=== PATIENT | female | born 1985 | race Caucasian/White ===

== ENCOUNTER → 2019-03-19 | Outpatient (CLI) | payer SELFPAY ==
--- NOTE | 2019-03-19 17:26 | PCVCIMAG ---
APPROVED REPORT Study performed: 03/19/2019 16:39:15 EXAM: Comprehensive 2D, Doppler, and color-flow Echocardiogram Patient Location: Echo lab Status: routine BSA: 2.39 HR: 103 bpmBP: 144/102 mmHg Rhythm: Tachycardia Other Information Study Quality: Adequate Indications Premature atrial contractions 2D Dimensions IVSd: 13.38 (7-11mm) LVDd: 38.87 mm PWd: 11.88 (7-11mm)Ascending Ao: 31.56 (22-36mm) LVDs: 30.13 (25-40mm) Left Atrium: 37.39 (27-40mm) Aortic Root: 31.82 mm LV Single Plane 4CH: 53.62 % LV Single Plane 2CH: 59.53 % Biplane EF: 56.3 % Volumes Left Atrial Volume (Systole) Single Plane 4CH: 58.16 mLSingle Plane 2CH: 59.59 mL LA ESV Index: 26.00 mL/m2 Aortic Valve AoV Peak Burke.: 1.26 m/s AO Peak Gr.: 6.35 mmHgLVOT Max P.93 mmHg LVOT Max V: 0.99 m/s Mitral Valve E/A Ratio: 0.8 MV Decel. Time: 202.61 ms MV E Max Burke.: 0.49 m/s MV A Burke.: 0.65 m/s IVRT: 107.27 ms Pulmonary Valve PV Peak Burke.: 1.13 m/sPV Peak Gr.: 5.09 mmHg Pulmonary Vein P Vein S: 0.33 m/sP Vein A: 0.62 m/s P Vein D: 0.41 m/sP Vein A Dur.: 110.7 msec P Vein S/D Ratio: 0.80 Tricuspid Valve TR Peak Burke.: 2.25 m/s TR Peak Gr.: 20.18 mmHg TV Vmax: 0.54 m/s Left Ventricle The left ventricle is normal size. There is normal LV segmental wall motion. Mild concentric left ventricular hypertrophy. Left ventricular systolic function is normal. The left ventricular ejection fraction is within the normal range. LVEF is 55-60%. Grade I - abnormal relaxation pattern. Right Ventricle The right ventricle is normal size. The right ventricular systolic function is normal. Atria The left atrium size is normal. The right atrium size is normal. Aortic Valve The aortic valve is normal in structure. No aortic regurgitation is present. There is no aortic valvular stenosis. Mitral Valve The mitral valve is normal in structure. Trace mitral regurgitation. No evidence of mitral valve stenosis. Tricuspid Valve The tricuspid valve is normal in structure. Trace tricuspid regurgitation with PAP of 27 mmHg. Pulmonic Valve The pulmonary valve is normal in structure. There is no pulmonic valvular regurgitation. Great Vessels The aortic root is normal in size. IVC is normal in size and collapses >50% with inspiration. Pericardium There is no pericardial effusion. There is no pleural effusion. <Conclusion> The left ventricle is normal size. LVEF is 55-60%. The aortic valve is normal in structure. The mitral valve is normal in structure. Trace mitral regurgitation. The tricuspid valve is normal in structure. Trace tricuspid regurgitation with PAP of 27 mmHg. There is no pericardial effusion.
== END | disposition home or self-care (01) ==
LOC: PCVCIMAG 15:24
PROVIDERS: ATTEND Family Medicine
DX: I49.1 Atrial premature depolarization (principal)
CPT/HCPCS: 93306